=== PATIENT | male | born 1995 | race African-American/Black ===

== ENCOUNTER 2022-02-19 18:45 | Emergency (ER) | payer OTHER, MEDICAID ==
[~2022-02-19] VITALS: Ht 188 cm; Wt 87.0 kg
[2022-02-19] MEDS ORDERED: ACETAMINOPHEN WITH CODEINE 300/30MG TABLET PO ONE (19:15)
[2022-02-19] MEDS ORDERED: IBUP-2028 PO (19:55)
[2022-02-19 20:15] VITALS: BP 117/74
== END 2022-02-19 20:16 | disposition home or self-care (01) ==
LOC: ER 18:45
DX: S00.83XA Contusion of other part of head, initial encounter (principal); Y04.0XXA Assault by unarmed brawl or fight, initial encounter; Y93.89 Activity, other specified; Y92.89 Other specified places as the place of occurrence of the external cause
CPT/HCPCS: 70486; 99284